=== PATIENT | male | born 1950 | race Caucasian/White ===

== ENCOUNTER 2019-07-08 14:59 | Day surgery (SDC) | payer MEDICARE, OTHER, SELFPAY ==
[2019-07-08] VITALS (9 sets, daily range): BP systolic 108–149; BP diastolic 73–94; PULSE 68–86; RESP 10–20; TEMP 35.7–36.4; O2SAT 92–96; BMI 30.5
--- NOTE | 2019-07-08 | PATH_ITS ---
[facility] Accession Number: [id number] . 01 Material submitted: . PART A: colon - SIGMOID OCLON POLYP AT 38 CM PART B: colon - SIGMOID COLON POLYP . 01 Clinical history: . A: LARGE PEDUNCULATED SIGMOID COLON POLYP . 02 Diagnosis: A. Polyp From Sigmoid Colon at 38 cm: Adenocarcinoma, moderately differentiated, arising in a pedunculated mixed tubular and villiform adenoma, invading the polyp stalk. Polyp stalk margin free of tumor (at least 2 mm margin). Negative for evidence of vascular invasion. . B. Biopsy, Sigmoid Colon Polyp: Colon mucosal fragments consistent with hyperplastic polyp admixed with multiple fragments of a vegetable matter. . . COMMENT: Part A reviewed by Dr. Mehrdad Deleon, who agrees with the diagnosis. . The results of this evaluation are telephoned to Dr. Von Dukes at 11:40 a.m. on 07/10/2019. MRV/07/10/2019 . 02 Electronically signed: . Nazario Gonzalez MD, Pathologist NPI- [id number] . 01 Gross description: . Part A: SIGMOID OCLON POLYP AT 38 CM: Received in formalin is 1 fragment(s) of lobato, soft tissue measuring 1.9 x 1.3 x 1.0 cm which is inked, trisected and submitted entirely in 1 cassette(s) Part B: SIGMOID COLON POLYP: Received in formalin are multiple fragment(s) of lobato, soft tissue measuring 0.8 x 0.5 x 0.3 cm in aggregate submitted entirely in 1 cassette(s) /CKI /CKI . 02 Pathologist provided ICD-10: C18.7 . 02 CPT . 912596, [id number] Performed at: 01 [facility] [address] [place] [address], [place], [place] [id number] MD Nicolás Renae MD Phone: [phone] Performed at: 02 [facility] [address] [place], [place] [id number] MD Natty Conley MD Phone: [phone]
[2019-07-08] MEDS: SODIUM CHLORIDE 0.9% 1,000 ML 200 ML IV ×2 (15:40→17:48)
--- NOTE | 2019-07-08 16:23 | PM.HP.1 ---
History of Present Illness Date Patient Seen: 07/08/19 Time Patient Seen: 16:23 Chief complaint: [id number] COLONOSCOPY Narrative: Patient seen and examined Positive:: cologard test Diagnostic colonoscopy planned Patient History Medical History (Updated 07/08/19 @ 15:13 by Natty Oquendo RN) COPD (chronic obstructive pulmonary disease) (Acute) Diabetes (Chronic) HTN (hypertension) (Chronic) Hyperlipidemia (Chronic) Surgical History (Updated 07/08/19 @ 15:13 by Natty Oquendo RN) S/P cholecystectomy (Acute) Hx of cholecystectomy (Chronic) Family History (Updated 05/26/19 @ 10:51 by Saba Peralta RN) Father Hypertension Heart disease Sister Diabetes mellitus Social History (Updated 05/26/19 @ 10:52 by Saba Peralta RN) marital status: household members: spouse occupational status: previously employed Smoking Status: Never smoker alcohol intake: never substance use type: does not use Family & Social History Family History (Updated 05/26/19 @ 10:51 by Saba Peralta RN) Father Hypertension Heart disease Sister Diabetes mellitus Social History: household members spouse Tobacco & Substance use: Smoking Status Never smoker alcohol intake never Meds Home Medications Medication Instructions Recorded Confirmed Type aspirin 81 mg tablet,delayed 81 mg PO DAILY 05/26/19 07/08/19 History release atorvastatin 80 mg tablet 80 mg PO DAILY 05/26/19 07/08/19 History levothyroxine 112 mcg tablet 112 mcg PO DAILY 05/26/19 07/08/19 History lisinopril 20 mg tablet 20 mg PO DAILY 05/26/19 07/08/19 History metformin 500 mg tablet 500 mg PO BID 05/26/19 07/08/19 History montelukast 10 mg tablet 10 mg PO QPM 05/26/19 07/08/19 History Allergies Allergy/AdvReac Type Severity Reaction Status Date / Time No Known Drug Allergies Allergy Verified 07/08/19 15:19 Exam Vital Signs (past 8 hours): - 07/08/19 15:21 Temperature 97.6 F Pulse Rate 86 Respiratory Rate 20 Blood Pressure 149/94 H Pulse Oximetry 96 Oxygen Delivery Method Room Air
[2019-07-08] MEDS: fentaNYL 250 MCG/5 ML INJ IV (16:34)
[2019-07-08] MEDS: MIDAZOLAM 5 MG/5 ML VIAL IV (16:35)
[2019-07-08] MEDS: GLUCAGON,HUMAN RECOMBINANT 1 MG/ML VIAL IV (16:59)
[2019-07-08] MEDS: diphenhydrAMINE 50 MG/ML VIAL IV (17:50)
--- NOTE | 2019-07-08 17:56 | P.OP.ENDO_ITS ---
Operative Date/Time/Diagnoses Date of procedure: 07/08/19 Time of procedure: 17:46 Pre-op diagnosis: Positive Cologard screen Post-op diagnosis: same Procedure & Clinicians Study performed: Diagnostic colonoscopy-complete Hot Snare polypectomy -large pedunculated polyp in the mid sigmoid colon at 38 cm Biopsy forcep polypectomy small sessile polyp mid sigmoid colon Comfort ink tatooing of mid sigmoid colon -adjacent to site of large polypectomy Same procedure as scheduled: Yes Indications: 69-year-old man who has never undergone a colonoscopy presented to clinic with a positive screening cologuard test. He was asymptomatic. No family history of colon or rectal cancers. Surgeon: Von Dukes Procedure Notes SCOAP/Timeout: Completed Procedure in detail: Patient taken to the endoscopy suite, time-out was comp leted. Patient was sedated over the course of the procedure with 10 mg of midazolam and 300 micro g of fentanyl, in addition 1 mg of glucagon was given as well as 50 mg of diphenhydramine. 160 cm colonoscope was advanced through the anus and negotiated through the folds of the rectum and colon -there was significant difficulty advancing the scope through the sigmoid colon. It was tortuous and had severe extensive diverticular disease. There room multiple false tracts and diverticuli within diverticuliti. Eventually the it cecum was identified via a prominent ileocecal valve and appendiceal orifice The colonoscope was then slowly withdrawn There was diverticular disease with right and transverse colon -upon inspecting the sigmoid colon in addition to the significant diverticular disease a large pedunculated polyp was noted -this was snared including a sizable portion of its stalk. The stalk was transected with cautery. It was noted to be hemostatic. The area was tattooed with total of 4 submucosal 1 cc blisters of Comfort ink An additional small sessile polyp in the vicinity of the large polyp was identified and removed via snare polypectomy. The specimen was somewhat mace rated as a consequence of cold biopsy forcep was utilized to biopsy the base with the snare polypectomy had occurred. The scope was then slowly withdrawn no additional lesions were identified, there is no lesions upon retroflexion of the scope in the distal rectum Prep was adequate Scope withdrawal time: 50 Sedation minutes: 65 Specimen(s): other (Large sigmoid polyp, small sessile sigmoid polyp with biopsy of base) Impression: Large pedunculated polyp in the midsigmoid colon -status post polypectomy, site tatooed Small snare polypectomy a sigmoid polyp Extensive severe diverticular disease throughout the sigmoid colon, moderate diverticular disease in the transverse and right colon Enlarged prostate Recommendations: Other recommendation (Pending biopsy results) Plan for aftercare: PACU then home Follow up: as needed Disposition: PACU
== END 2019-07-08 18:50 | disposition home or self-care (01) ==
PROVIDERS: Visit Provider Surgery
PROC: 0DJD8ZZ Inspection of Lower Intestinal Tract, Via Natural or Artificial Opening Endoscopic (ICD-10-PCS; CPT 45378; principal; 2019-07-08 16:00)
DX: C18.7 Malignant neoplasm of sigmoid colon (principal); R19.5 Other fecal abnormalities; K63.5 Polyp of colon; K57.30 Diverticulosis of large intestine without perforation or abscess without bleeding; J44.9 Chronic obstructive pulmonary disease, unspecified; N40.0 Benign prostatic hyperplasia without lower urinary tract symptoms; E11.9 Type 2 diabetes mellitus without complications; I10 Essential (primary) hypertension; E78.5 Hyperlipidemia, unspecified; Z79.84 Long term (current) use of oral hypoglycemic drugs
CPT/HCPCS: 45385; 45381; 88305; 99152; 99153; J1200; J1610; J2250; J3010

== ENCOUNTER 2020-01-30 07:28 | Day surgery (SDC) | payer MEDICARE, OTHER, SELFPAY ==
--- NOTE | 2020-01-30 | PATH_ITS ---
[facility] Accession Number: [id number] . 01 Material submitted: . rectum - RECTAL POLYP AT 15 CM . 01 Clinical history: . SCREENING COLONOSCOPY . 02 Diagnosis: Rectum, Polyp At 15 CM, Biopsy: Hyperplastic polyp. [facility] 02/02/2020 1224 Local . 02 Electronically signed: . Natty Conley MD, Pathologist NPI- [id number] . 01 Gross description: . Received in formalin, labeled rectal polyp @ 15 cm, are multiple fragments of lobato tissue (0.7 x 0.3 x 0.1 cm in aggregate). Filtered and entirely submitted in cassette A1. ([id number]) /MRV 02/01/2020 1913 Local . 02 Pathologist provided ICD-10: K62.1 . 02 CPT . 170264 Performed at: 01 [facility] [address], [place], [place] [id number] MD Nicolás Renae MD Phone: [phone] Performed at: 02 [facility] [address] [place], [place] [id number] MD Natty Conley MD Phone: [phone]
[2020-01-30] MEDS: SODIUM CHLORIDE 0.9% 1,000 ML 200 ML IV (07:54)
[2020-01-30 07:56] VITALS: BP 129/90; PULSE 83; RESP 17; TEMP 36.4; O2SAT 97; BMI 30.4
--- NOTE | 2020-01-30 08:52 | P.HP_ITS ---
History of Present Illness History of Present Illness Date Patient Seen: 01/30/20 Time Patient Seen: 08:54 Chief complaint: [id number] SCREENING COLONOSCOPY Narrative: This is a 69-year-old man here for follow-up colonoscopy. Six months ago he was found to have a large polyp in his sigmoid colon, which was removed with snare polypectomy, and was found to have colon cancer within it. He had a good margin on the stalk, and so he is here for follow-up surveillance col onoscopy, to ensure that nothing has grown back or nothing was missed during his previous colonoscopy. He denies any interim symptoms of bleeding, melena, unexplained weight loss, or unexplained abdominal pain. ROS: Denies nausea, reports hard of hearing, with hearing aids in use. Thirteen system review is otherwise negative other than as mentioned below and in HPI. PE: GENERAL: Well groomed and cooperative. Appears stated age. Answers questions promptly and appropriately. Vital signs noted. HENT: Normocephalic, atraumatic. Hearing intact. Oral mucosa is pink and moist. EYES: Conjunctiva pink, sclera white, no periorbital swelling. CARDIOVASCULAR: Regular rate. No pedal edema. RESPIRATORY: Non-tachypneic, breathing comfortably on room air. GASTROINTESTINAL: Abdomen soft and non-distended GENITALURINARY: No flank tenderness. MUSCULOSKELETAL: Equal tone and mass bilaterally. SKIN: Warm, dry, soft, appropriate color for ethnicity. No other lesions, rashes, or wounds. NEURO: Alert and Oriented X 3. No gross sensory deficits, or cognitive issues. PSYCH: Appropriate affect and mood. Patient History Medical History COPD (chronic obstructive pulmonary disease) (Acute) Diabetes (Chronic) HTN (hypertension) (Chronic) Hyperlipidemia (Chronic) Surgical History Hx of cholecystectomy (Chronic) S/P cholecystectomy (Acute) Family & Social History Family History Father Hypertension Heart disease Sister Diabetes mellitus Social History: household members spouse Tobacco & Substance use: Smoking Status Never smoker alcohol intake never Substance Use Type does not use Meds Home Medications and Allergies Home Medications Medication Instructions Recorded Confirmed Type aspirin 81 mg tablet,delayed 81 mg PO DAILY 05/26/19 01/30/20 History release atorvastatin 80 mg tablet 80 mg PO DAILY 05/26/19 01/30/20 History levothyroxine 112 mcg tablet 112 mcg PO DAILY 05/26/19 01/30/20 History lisinopril 20 mg tablet 20 mg PO DAILY 05/26/19 01/30/20 History metformin 500 mg tablet 500 mg PO BID 05/26/19 01/30/20 History montelukast 10 mg tablet 10 mg PO QPM 05/26/19 01/30/20 History Allergies Allergy/AdvReac Type Severity Reaction Status Date / Time No Known Drug Allergies Allergy Verified 01/30/20 08:02 Exam Vital Signs (past 8 hours): - 01/30/20 07:56 01/30/20 08:41 Temperature 97.6 F 97.8 F Pulse Rate 83 61 Respiratory Rate 17 17 Blood Pressure 129/90 117/68 Pulse Oximetry 97 100 Oxygen Delivery Method Room Air Assessment & Plan Assessment and plan (1) Colon cancer: Current visit: No Status: Acute (2) High risk for colon cancer: Current visit: Yes Status: Acute Assessment & Plan narrative: Risks and benefits of surveillance colonoscopy and possible polypectomy or biopsy were discussed with the patient including risk of bleeding, perforation, need for additional procedures, risks of anesthesia. The patient desires to proceed with the colonoscopy procedure. Time Spent With Patient Time with patient: 15-24 minutes Quality VTE Deep Vein Thrombosis/Pulmonary Embolism Present on Admission: No
[2020-01-30] MEDS: MIDAZOLAM 5 MG/5 ML VIAL IV (09:30)
[2020-01-30] MEDS: fentaNYL 250 MCG/5 ML INJ IV (09:31)
--- NOTE | 2020-01-30 09:32 | PM.OP.ENDO ---
Operative Date/Time/Diagnoses Date of procedure: 01/30/20 Time of procedure: 09:32 Pre-op diagnosis: colon cancer, severe diverticulosis Post-op diagnosis: other (rectal polyp, no recurrence at tattooed site, severe diverticulosis with evidence of prior diverticulitis) Procedure & Clinicians Study performed: Surveillance colonoscopy, polypectomy x2 of rectal polyp using hot snare, hemostasis without Same procedure as scheduled: Yes Indications: This is a 69-year-old man who had polypectomy 6 months ago, which was sound to be colon cancer. He is here for follow-up surveillance colonoscopy. Surgeon: Pinky Higgins Procedure Notes SCOAP/Timeout: Performed Procedure in detail: The patient was brought to the room and placed in left lateral decubitus position with all bony prominences padded. A time-out was performed and then the patient was given procedural sedation starting with 2 mg of Versed and 100 mcg of fentanyl. No additional medication was given throughout the procedure. Vitals were monitored throughout the procedure and remained stable. Once adequately sedated the procedure was begun. A rectal exam was performed revealing no abnormalities. The colonoscope was then introduced to the rectum and advanced to the cecum in the usual fashion. The cecum was identified by the appendiceal orifice, the mucosal tri-fold, and the ileocecal valve. The scope was then retracted while rotating side to side and examining each mucosal fold. Diverticulosis was seen in the right and left colon, with severe thickening of the sigmoid colon with deep false passages and many many diverticula. The tattoo which was placed 6 months ago when his cancers polyp was removed, was seen, and the entire area was carefully investigated. There was no recurrence or remnant polyp seen at this site. In the rectum at 15 cm several small adenomatous appearing polyps were seen and removed with hot snare. There was post polypectomy bleeding at this site, and hemostasis was achieved with cautery. At the conclusion of the procedure retroflexion was performed and small grade 1-2 internal hemorrhoids without stigmata of bleeding were seen. The scope was then withdrawn from the rectum the procedure was concluded. The patient tolerated the procedure well and was transferred to the PACU in stable condition. Scope withdrawal time: 14 Sedation minutes: 23 Findings: diverticulosis (Extensive diverticulosis, With evidence of prior extensive diverticulitis, many false passages) and polyp (15 cm in the rectum, 2 polyps removed) Specimen(s): other (Two polyps from the rectum removed with hot snare and cold forceps) Complications: none Impression: Extensive diverticulosis, with evidence of prior diverticulitis, significant thickening of the sigmoid colon, no evidence of recurrence of the cancerous polyp that was removed 6 months ago, few new small polyps in the rectum which were removed Post-procedure Recommendations: Colonscopy in 3 years (Surveillance due to colon cancer history, and new polyps found on this exam) Plan for aftercare: Consider using a fiber supplement due to extensive diverticulosis. It helps bulk up the stool make it easier to pass, reducing the formation of diverticula, and reducing the risk of diverticulitis. Follow up: as needed Disposition: PACU
[2020-01-30 09:38] VITALS: BP 127/65; PULSE 76; RESP 15; TEMP 37.2; O2SAT 96
[2020-01-30 09:43] VITALS: BP 126/73; PULSE 72; RESP 16; O2SAT 96
[2020-01-30 09:57] VITALS: BP 117/73; PULSE 72; RESP 16; TEMP 36.7; O2SAT 96
== END 2020-01-30 10:05 | disposition home or self-care (01) ==
PROVIDERS: PCP Internal Medicine; Referring Provider Surgery; Visit Provider Surgery
PROC: 0DJD8ZZ Inspection of Lower Intestinal Tract, Via Natural or Artificial Opening Endoscopic (ICD-10-PCS; CPT 45378; principal; 2020-01-30 08:30)
DX: Z85.038 Personal history of other malignant neoplasm of large intestine (principal); J44.9 Chronic obstructive pulmonary disease, unspecified; E11.9 Type 2 diabetes mellitus without complications; I10 Essential (primary) hypertension; E78.5 Hyperlipidemia, unspecified; Z79.84 Long term (current) use of oral hypoglycemic drugs; K62.1 Rectal polyp; K57.30 Diverticulosis of large intestine without perforation or abscess without bleeding; K64.0 First degree hemorrhoids
CPT/HCPCS: 45385; 45380; 99152; J2250; J3010

== ENCOUNTER 2023-07-31 07:12 | Day surgery (SDC) | payer MEDICARE, OTHER, SELFPAY ==
[2023-07-31] MEDS: LACTATED RINGERS 1,000 ML 42 ML IV (07:29)
[2023-07-31 07:30] VITALS: BMI 27.3
[2023-07-31] MEDS: FLEETS ENEMA 1 EACH PR (07:42)
[2023-07-31 07:47] VITALS: BP 155/85; PULSE 79; RESP 17; TEMP 36.1; O2SAT 97
--- NOTE | 2023-07-31 07:49 | SUR.PREOP ---
See order for fleets enema. Dr Cole notified of almost clear output from prep, not yet Gatorade but more clear than chocolate milk
--- NOTE | 2023-07-31 08:12 | PM.HP.1 ---
History of Present Illness History of Present Illness Date Patient Seen: 07/31/23 Time Patient Seen: 08:12 Chief complaint: Dx Colonoscopy w/poss bx Narrative: 73-year-old man here for screening colonoscopy. History of a cancerous polyp removed several years ago. Last colonoscopy was 2019 and normal. No abdominal pain nausea vomiting unintentional weight loss. Month ago he would a little bit of rectal bleeding bright red. PFSH Medical History COPD (chronic obstructive pulmonary disease) Diabetes HTN (hypertension) Hyperlipidemia Surgical History Hx of cholecystectomy S/P cholecystectomy Family History Father Hypertension Heart disease Sister Diabetes mellitus Social History marital status: household members: spouse occupational status: previously employed Smoking Status: Former smoker alcohol intake: current substance use type: does not use Meds Home Medications and Allergies Home Medications Medication Instructions Recorded Confirmed Type aspirin 81 mg tablet,delayed 81 mg PO DAILY 05/26/19 01/30/20 History release atorvastatin 80 mg tablet (Lipitor) 80 mg PO DAILY 05/26/19 01/30/20 History levothyroxine 112 mcg tablet 112 mcg PO DAILY 05/26/19 01/30/20 History (Synthroid) lisinopril 20 mg tablet 20 mg PO DAILY 05/26/19 01/30/20 History metformin 500 mg tablet 500 mg PO BID 05/26/19 01/30/20 History montelukast 10 mg tablet 10 mg PO QPM 05/26/19 01/30/20 History sodium,potassium,mag sulfates 17.5 See Rx Instructions PO .COMPLEX 05/25/23 Rx gram-3.13 gram-1.6 gram oral soln #354 mL (Suprep Bowel Prep Kit) Allergies Allergy/AdvReac Type Severity Reaction Status Date / Time No Known Drug Allergies Allergy Verified 07/31/23 07:30 Exam Vital Signs (past 8 hours): - 07/31/23 07:47 Temperature 97 F L Pulse Rate 79 Respiratory Rate 17 Blood Pressure 155/85 H Pulse Oximetry 97 Oxygen Delivery Method Room Air Oxygen Delivery Method Room Air Narrative Exam Narrative: General adult man alert oriented no acute distress Abdomen soft nontender nondistended Assessment & Plan Assessment & Plan narrative: The patient requires colorectal screening and colonoscopy is recommended. Technical details were discussed. Risks, benefits, alternatives explained. Risks including but not limited to myocardial infarction, aspiration, bleeding, pain, missed lesion, incomplete examination, need for further radiographic studies, colonic perforation, and need for major abdominal surgery were discussed. All questions were answered to their satisfaction, and they are in agreement with this plan.
--- NOTE | 2023-07-31 08:13 | PM.OP.COLON ---
Operative Date/Time/Diagnoses Date of procedure: 07/31/23 Time of procedure: 08:13 Pre-op diagnosis: History of cancerous polyp Procedure & Clinicians Study performed: Aborted colonoscopy Indications: 73-year-old man history of a malignant polyp here for screening colonoscopy. Surgeon: Jaylen Cole Procedure Notes Procedure in detail: The history and physical was performed/updated and the patient is ASA class is 2. The procedure was discussed in detail with the patient. Potential risks complications including infection, bleeding, missed diagnosis, perforation, need for surgery, and were explained. Their questions were answered and informed consent was obtained. Patient was brought to the procedure room and placed standard monitoring equipment. The patient's vital signs were monitored continuously throughout the entire procedure. Prior to starting time-out was performed. The patient was placed in the left lateral recumbent position. Procedural sedation was administered by anesthesia. Examination began with a thorough inspection of the perianal area there was no evidence of fissures, fistulae, external hemorrhoids or cutaneous malignancy. The colonoscopy scope was then placed into the anal canal and was advanced forward. The quality of the prep was inadequate for safe and accurate performance of the procedure. Despite irrigation it did not approve significantly in the procedure was terminated. Impression: Aborted colonoscopy for inadequate prep Post-procedure Plan for aftercare: Please contact the surgical clinic to reschedule with an alternative prep solution Disposition: same day surgery
[2023-07-31 08:30] VITALS: BP 92/58; PULSE 70; RESP 17; TEMP 36.2; O2SAT 96
[2023-07-31 08:35] VITALS: BP 95/60; PULSE 68; RESP 11; O2SAT 96
[2023-07-31 08:40] VITALS: BP 102/63; PULSE 70; RESP 12; O2SAT 97
[2023-07-31 08:45] VITALS: BP 104/75; PULSE 68; RESP 11; O2SAT 98
[2023-07-31 08:55] VITALS: BP 119/75; PULSE 68; RESP 14; O2SAT 97
== END 2023-07-31 09:12 | disposition home or self-care (01) ==
PROVIDERS: PCP Internal Medicine; Referring Provider Surgery; Visit Provider Surgery
PROC: 0DJD8ZZ Inspection of Lower Intestinal Tract, Via Natural or Artificial Opening Endoscopic (ICD-10-PCS; CPT 45378; principal; 2023-07-31 08:15)
DX: Z12.11 Encounter for screening for malignant neoplasm of colon (principal); Z86.010 Personal history of colon polyps; Z53.09 Procedure and treatment not carried out because of other contraindication
CPT/HCPCS: G0105; J2704

== ENCOUNTER 2023-10-23 07:40 | Day surgery (SDC) | payer MEDICARE, OTHER, SELFPAY ==
[2023-10-23 08:01] VITALS: BMI 28.1
[2023-10-23 08:19] VITALS: BP 156/87; PULSE 76; RESP 17; TEMP 36.4; O2SAT 97
[2023-10-23] MEDS: LACTATED RINGERS 1,000 ML 150 ML IV (08:23)
--- NOTE | 2023-10-23 08:47 | PM.HP.1 ---
History of Present Illness History of Present Illness Date Patient Seen: 10/23/23 Time Patient Seen: 08:47 Chief complaint: Dx Colonoscopy w/poss bx Narrative: 73-year-old man history of malignant colonic polyp here for screening colonoscopy. Last colonoscopy couple of months ago but was incomplete due to inadequate preparation. No abdominal concerns including abdominal pain rectal bleeding unintentional weight loss. [facility] Medical History COPD (chronic obstructive pulmonary disease) Hyperlipidemia HTN (hypertension) Diabetes Surgical History S/P cholecystectomy Hx of cholecystectomy Family History Father Hypertension Heart disease Sister Diabetes mellitus Social History marital status: household members: spouse occupational status: previously employed Smoking Status: Former smoker alcohol intake: current substance use type: does not use Meds Home Medications and Allergies Home Medications Medication Instructions Recorded Confirmed Type aspirin 81 mg tablet,delayed 81 mg PO DAILY 05/26/19 10/23/23 History release atorvastatin 80 mg tablet (Lipitor) 80 mg PO DAILY 05/26/19 10/23/23 History levothyroxine 112 mcg tablet 112 mcg PO DAILY 05/26/19 10/23/23 History (Synthroid) lisinopril 20 mg tablet 20 mg PO DAILY 05/26/19 10/23/23 History metformin 500 mg tablet 500 mg PO BID 05/26/19 10/23/23 History montelukast 10 mg tablet 10 mg PO QPM 05/26/19 10/23/23 History polyethylene glycol 3350 17 gram 17 g PO DAILY 10/23/23 10/23/23 History oral powder packet (Miralax) Allergies Allergy/AdvReac Type Severity Reaction Status Date / Time No Known Drug Allergies Allergy Verified 10/23/23 07:59 Exam Vital Signs (past 8 hours): - 10/23/23 08:19 Temperature 97.5 F L Pulse Rate 76 Respiratory Rate 17 Blood Pressure 156/87 H Pulse Oximetry 97 Oxygen Delivery Method Room Air Oxygen Delivery Method Room Air Narrative Exam Narrative: General adult man alert oriented no acute distress Chest nonlabored respiration Abdomen soft nontender nondistended Assessment & Plan Assessment and plan (1) Colon cancer: Status: Acute Assessment & Plan narrative: 73-year-old man history of a malignant colonic polyp here for screening colonoscopy. Technical details were discussed. Risks, benefits, alternatives explained. Risks including but not limited to myocardial infarction, aspiration, bleeding, pain, missed lesion, incomplete examination, need for further radiographic studies, colonic perforation, and need for major abdominal surgery were discussed. All questions were answered to their satisfaction, and they are in agreement with this plan.
[2023-10-23 09:10] VITALS: BP 94/65; PULSE 68; RESP 12; TEMP 36.4; O2SAT 93
[2023-10-23 09:15] VITALS: BP 108/67; PULSE 67; RESP 13; O2SAT 95
--- NOTE | 2023-10-23 09:19 | PM.OP.COLON ---
Operative Date/Time/Diagnoses Date of procedure: 10/23/23 Time of procedure: 09:19 Pre-op diagnosis: History of malignant colonic polyp Procedure & Clinicians Study performed: Attempted colonoscopy aborted Same procedure as scheduled: Yes Indications: History of malignant colonic polyp Surgeon: Jaylen Cole Procedure Notes Procedure in detail: The history and physical was performed/updated and the patient is ASA class is 2. The procedure was discussed in detail with the patient. Potential risks complications including infection, bleeding, missed diagnosis, perforation, need for surgery, and were explained. Their questions were answered and informed consent was obtained. Patient was brought to the procedure room and placed standard monitoring equipment. The patient's vital signs were monitored continuously throughout the entire procedure. Prior to starting time-out was performed. The patient was placed in the left lateral recumbent position. Procedural sedation was administered by anesthesia. Examination began with a thorough inspection of the perianal area there was no evidence of fissures, fistulae, external hemorrhoids or cutaneous malignancy. The colonoscopy scope was then placed into the anal canal and was advanced forward. The quality of the preparation was inadequate for safe and accurate performance of the exam and was aborted. There was solid and liquid stool within the colon. Post-procedure Plan for aftercare: One week clear liquid diet for colonoscopy prep Disposition: same day surgery
[2023-10-23 09:20] VITALS: BP 105/65; PULSE 66; RESP 12; TEMP 36.4; O2SAT 94
== END 2023-10-23 09:30 | disposition home or self-care (01) ==
PROVIDERS: PCP Internal Medicine; Referring Provider Surgery; Visit Provider Surgery
PROC: 0DJD8ZZ Inspection of Lower Intestinal Tract, Via Natural or Artificial Opening Endoscopic (ICD-10-PCS; CPT 45378; principal; 2023-10-23 08:45)
DX: Z12.11 Encounter for screening for malignant neoplasm of colon (principal); Z85.038 Personal history of other malignant neoplasm of large intestine; Z53.09 Procedure and treatment not carried out because of other contraindication
CPT/HCPCS: G0105; J2704

== ENCOUNTER 2023-12-25 11:43 | Day surgery (SDC) | payer MEDICARE, OTHER, SELFPAY ==
[2023-12-25] MEDS: LACTATED RINGERS 1,000 ML 42 ML IV (13:21)
[2023-12-25 13:25] VITALS: BP 140/81; PULSE 67; RESP 18; TEMP 36.1; O2SAT 98
--- NOTE | 2023-12-25 13:34 | P.HP_ITS ---
History of Present Illness History of Present Illness Date Patient Seen: 12/25/23 Time Patient Seen: 13:34 Chief complaint: Dx Colonoscopy Narrative: 73-year-old man history of malignant colonic polyp resected 5 years ago endoscopically, here for screening colonoscopy. 2 recent attempts at colonoscopy both aborted secondary to inadequate prep. No abdominal concerns today. [facility] Medical History COPD (chronic obstructive pulmonary disease) Hyperlipidemia HTN (hypertension) Diabetes Surgical History S/P cholecystectomy Hx of cholecystectomy Family History Father Hypertension Heart disease Sister Diabetes mellitus Social History marital status: household members: spouse occupational status: previously employed Smoking Status: Former smoker alcohol intake: current substance use type: does not use Meds Home Medications and Allergies Home Medications Medication Instructions Recorded Confirmed Type aspirin 81 mg tablet,delayed 81 mg PO DAILY 05/26/19 12/25/23 History release atorvastatin 80 mg tablet (Lipitor) 80 mg PO DAILY 05/26/19 12/25/23 History levothyroxine 112 mcg tablet 112 mcg PO DAILY 05/26/19 12/25/23 History (Synthroid) lisinopril 20 mg tablet 20 mg PO DAILY 05/26/19 12/25/23 History metformin 500 mg tablet 500 mg PO BID 05/26/19 12/25/23 History montelukast 10 mg tablet 10 mg PO QPM 05/26/19 12/25/23 History Allergies Allergy/AdvReac Type Severity Reaction Status Date / Time No Known Drug Allergies Allergy Verified 12/25/23 13:22 Exam Narrative Exam Narrative: General adult man alert oriented no acute distress Chest nonlabored respiration Extremities warm well perfused Assessment & Plan Assessment & Plan narrative: The patient requires colorectal screening and colonoscopy is recommended. Technical details were discussed. Risks, benefits, alternatives explained. Risks including but not limited to myocardial infarction, aspiration, bleeding, pain, missed lesion, incomplete examination, need for further radiographic studies, colonic perforation, and need for major abdominal surgery were discussed. All questions were answered to their satisfaction, and they are in agreement with this plan.
[2023-12-25 14:10] VITALS: BP 112/66; PULSE 60; RESP 16; TEMP 36.5; O2SAT 97
[2023-12-25 14:15] VITALS: BP 102/63; PULSE 59; RESP 14; O2SAT 96
[2023-12-25 14:22] VITALS: BP 105/67; PULSE 62; RESP 12; TEMP 36.5; O2SAT 97
--- NOTE | 2023-12-25 14:22 | P.OP.COLON_ITS ---
Operative Date/Time/Diagnoses Date of procedure: 12/25/23 Time of procedure: 14:22 Pre-op diagnosis: Malignant polyp Procedure & Clinicians Study performed: Colonoscopy Same procedure as scheduled: Yes Indications: History of malignant sigmoid polyp Surgeon: Jaylen Cole Procedure Notes Procedure in detail: The history and physical was performed/updated and the patient is ASA class is 3 The procedure was discussed in detail with the patient. Potential risks comp lications including infection, bleeding, missed diagnosis, perforation, need for surgery, and were explained. Their questions were answered and informed consent was obtained. Patient was brought to the procedure room and placed standard monitoring equipment. The patient's vital signs were monitored continuously throughout the entire procedure. Prior to starting time-out was performed. The patient was placed in the left lateral recumbent position. Procedural sedation was administered by anesthesia. Examination began with a thorough inspection of the perianal area there was no evidence of fissures, fistulae, external hemorrhoids or cutaneous malignancy. The colonoscopy scope was then placed into the anal canal and was advanced to the cecum, which was identified by the ileocecal valve, the appendiceal orifice and the confluence of the taenia. The scope was then slowly withdrawn examining colon thoroughly in all directions, irrigating it of any residual stool. The scope was retroflexed within the rectum The patient tolerated the procedure well. They will be discharged once criteria are met. The prep was of good/excellent quality. The withdrawl time was 7 minutes. FINDINGS * Extensive sepulveda diverticulosis * Noted tattoo within the sigmoid colon from previous polypectomy. No evidence of residual polyp. Specimen(s): none sent Impression: Extensive diverticulosis Post-procedure Recommendations: Colonoscopy in 5 years Disposition: same day surgery
[2023-12-25 14:26] VITALS: BP 111/71; PULSE 69; RESP 16; TEMP 36.5; O2SAT 96
== END 2023-12-25 14:40 | disposition home or self-care (01) ==
PROVIDERS: PCP Internal Medicine; Referring Provider Surgery; Visit Provider Surgery
PROC: 0DJD8ZZ Inspection of Lower Intestinal Tract, Via Natural or Artificial Opening Endoscopic (ICD-10-PCS; CPT 45378; principal; 2023-12-25 12:30)
DX: Z12.11 Encounter for screening for malignant neoplasm of colon (principal); Z86.010 Personal history of colon polyps; K57.30 Diverticulosis of large intestine without perforation or abscess without bleeding
CPT/HCPCS: G0105; J2704